=== PATIENT | male | born 1980 | race Caucasian/White ===

== ENCOUNTER 2021-04-27 11:44 | Inpatient (IN) | payer SELFPAY ==
[~2021-04-27] VITALS: Ht 170.2 cm; Wt 83.9 kg
[2021-04-27 13:37] LABS: HEMOGLOBIN 15.6 gm/dl (14.0-17.5); RED BLOOD COUNT 5.11 M/UL (4.20-5.50); WHITE BLOOD COUNT 7.5 K/UL (4.5-11.0)
[2021-04-27 13:53] LABS: BUN/CREATININE RATIO 17 (0-10)
[2021-04-28 08:15] LABS: HEMOGLOBIN 16.2 gm/dl (14.0-17.5); RED BLOOD COUNT 5.4 M/UL (4.20-5.50); WHITE BLOOD COUNT 7.1 K/UL (4.5-11.0)
[2021-04-28 08:47] LABS: BUN/CREATININE RATIO 22 (0-10)
[2021-04-29 07:51] LABS: HEMOGLOBIN 15.5 gm/dl (14.0-17.5); RED BLOOD COUNT 5.4 M/UL (4.20-5.50)
[2021-04-29 08:10] LABS: BUN/CREATININE RATIO 24 (0-10)
--- NOTE | 2021-04-29 13:01 | NUR ---
O2 REMOVED AND PT UP IN ROOM. O2 SAT DOWN TO 85% WITH MINIMAL MOVEMENT. CASE MANAGEMENT NOTIFIED
[2021-04-29] MEDS ORDERED: ELIQUIS 2.5 MG2.5 MG GT (14:40)
[2021-04-29] MEDS ORDERED: DECADRON6 MG PO (14:40)
[2021-04-29] MEDS ORDERED: LEVOFLOXACIN750 MG PO (14:40)
== END 2021-04-29 17:49 | disposition home or self-care (01) | DRG 177 ==
LOC: ER1 11:44 → MED SURG 4 14:51 → CDU 14:51 → MED SURG 4 19:27
PROVIDERS: Physician Assistant; ADMIT Internal Medicine
PROC: XW033E5 Introduction of Remdesivir Anti-infective into Peripheral Vein, Percutaneous Approach, New Technology Group 5 (ICD-10-PCS; principal; 2021-04-27)
PROC: 8E0ZXY6 Isolation (ICD-10-PCS; 2021-04-27)
PROC: 3E0333Z Introduction of Anti-inflammatory into Peripheral Vein, Percutaneous Approach (ICD-10-PCS; 2021-04-29)
DX: U07.1 COVID-19 (principal); J12.82 Pneumonia due to coronavirus disease 2019; J96.01 Acute respiratory failure with hypoxia; Z99.81 Dependence on supplemental oxygen
CPT/HCPCS: 36415; 36600; 71045; 80048; 80053; 82550; 82553; 82803; 83735; 83874; 84484; 85025; 85027; 85379; 86140; 87040; 93005; 94664; 96374; 99285; J1100; J1650; J1956; J7030; U0002